=== PATIENT | male | born 1990 | race Caucasian/White ===

== ENCOUNTER 2022-06-01 20:01 | Emergency (ER) | payer MEDICARE, SELFPAY ==
[2022-06-01] VITALS (12 sets, daily range): BP systolic 110–125; BP diastolic 72–83; PULSE 45–80; RESP 16–20; TEMP 36.4–37.5; O2SAT 97–99
--- NOTE | 2022-06-01 20:26 | CRLHL7_ITS ---
For Patients: As a result of the Century Cures Act, medical imaging exams and procedure reports are released immediately into your electronic medical record. You may view this report before your referring provider. If you have questions, please contact your health care provider. INDICATION: Left inguinal hernia. COMPARISON: None. TECHNIQUE: CT abdomen pelvis with Isovue-370, 81 cc IV. FINDINGS: Lung bases are clear. Normal heart size. No pericardial effusion. Normal liver size and contour. No definite suspicious hepatic lesions. The hepatic veins are under opacified. Portal veins appear patent. The gallbladder is unremarkable. No biliary dilatation. No significant abnormality of the adrenal glands, kidneys, spleen, pancreas, stomach or duodenum. Normal course and caliber of the abdominal aorta and the IVC. The aortic side branches and the renal veins appear patent. There is no lymphadenopathy. The bladder and prostate are unremarkable. The large bowel is favored decompressed rather than thickened. The appendix appears normal. No significant free fluid. No significant ventral abdominal wall hernia. Small fat containing left inguinal hernia (series 2, image 131). No acute osseous abnormality. IMPRESSION: Small fat containing left inguinal hernia. Please note that all CT scans at this facility use dose modulation, iterative reconstruction, and/or weight-based dosing when appropriate to reduce radiation dose to as low as reasonably achievable. Dictated by David Casiano MD @ 06/01/2022 9:40:33 PM (Electronically Signed)
--- NOTE | 2022-06-01 20:28 | ED_ITS ---
HPI - General Adult General Chief complaint: Groin Pain Stated complaint: Hernia Time Seen by Provider: 06/01/22 20:23 History of Present Illness HPI narrative: This 32-year-old male comes in with severe pain in his left inguinal region. He states that he has a hernia there and did have a CT scan about a year ago. Recently he was lifting some heavy objects at work and now has severe pain in the left inguinal region radiating down into his left testicle he states that the pain is worse when attempting to pass urine or bowel movement. He does not report any fevers. He ranks the pain at 9 or 10 out of a scale of 10. Related Data Allergies Allergy/AdvReac Type Severity Reaction Status Date / Time No Known Drug Allergies Allergy Verified 06/01/22 20:19 PFSH PFS Social History Smoking Status: Current every day smoker How often do you have a drink containing alcohol: 2-4 times a month How often do you have six or more drinks on one occasion: Less than monthly AUDIT-C Alcohol total score: 3 Non-prescribed substance use: denies use service: No Exam Narrative: Exam Narrative: Constitutional: Well-developed, well-nourished, no acute distress. HEENT: Normocephalic, atraumatic. Neck: Normal range of motion. Nontender. Supple. Heart: Regular. No murmurs. Normal rate. Intact distal pulses. Lungs: Clear to auscultation. No chest discomfort. No wheezes, rhonchi, or rales. Abdomen: Normal bowel sounds. Tenderness in the left lower quadrant in the inguinal region. No significant palpable mass in this area. Genitalia: Deferred. Back: No midline tenderness. Normal range of motion. Extremities: Normal range of motion. No injury. Skin: Intact. No rash. Warm. No erythema or pallor. Neurologic: No altered sensation. No weakness. Alert and oriented. Psychiatric: No suicidality. No anxiety or depression. No insomnia. Nursing notes and vitals signs are reviewed. Const: Vital Signs, click to edit/add: Vital Signs - 24 hr 06/01/22 20:12 06/01/22 20:56 06/01/22 21:07 Temperature 99.5 F Pulse Rate [Left P ulse Oximeter] 65 55 L Respiratory Rate 16 18 Blood Pressure [Ri ght Upper Arm] 120/77 120/78 Pulse Oximetry 99 98 98 Oxygen Delivery Me thod Room Air Room Air Course Vital Signs Vital signs: Initial Vital Signs Temperature 99.5 F 06/01/22 20:12 Temperature Source Temporal Artery Scan 06/01/22 20:12 Pulse Rate 65 06/01/22 20:12 Pulse Rhythm 06/01/22 20:12 Pulse Strength 0+ Absent 06/01/22 20:12 Respiratory Rate 16 06/01/22 20:12 Blood Pressure 120/77 06/01/22 20:12 Blood Pressure Mean 91 06/01/22 20:12 Blood Pressure Position Sitting 06/01/22 20:12 Pulse Oximetry 99 06/01/22 20:12 Oxygen Delivery Method 06/01/22 20:12 Vital Signs Temperature 99.5 F 06/01/22 20:12 Pulse Rate 65 06/01/22 20:12 Respiratory Rate 16 06/01/22 20:12 Blood Pressure 120/77 06/01/22 20:12 Pulse Oximetry 99 06/01/22 20:12 Oxygen Delivery Method 06/01/22 20:12 Temperature 99.5 F 06/01/22 20:12 Pulse Rate 55 L 06/01/22 20:56 Respiratory Rate 18 06/01/22 20:56 Blood Pressure 120/78 06/01/22 20:56 Pulse Oximetry 98 06/01/22 21:07 Oxygen Delivery Method 06/01/22 20:56 Medical Decision Making MDM Narrative Medical decision making narrative: This patient has a known left inguinal hernia which is causing much more pain now after lifting some heavy objects at work. An IV was established where he received Dilaudid 0.5 mg and Zofran [address] scan of the abdomen and pelvis and labs are ordered with results pending at the end of my shift. Care for this patient is transferred to Dr. Wang for review of results and disposition. Lab Data Labs: Lab Results 06/01/22 06/01/22 Range/Units 20:40 20:40 WBC 5.70 (4.50-11.00) K/uL RBC 4.68 (4.30-5.90) m/uL Hgb 14.6 (13.5-17.5) gm/dL Hct 42.4 (37.0-53.0) % MCV 91 (80-100) fL MCH 31 (26-34) pg MCHC 34 (32-36) gm/dL RDW Coeff of Miry[place] 11.5 (11.5-15.5) % Plt Count 256 (140-440) K/uL Neut % (Auto) 67.9 (42.0-72.0) % Lymph % (Auto) 19.8 L (20-44) % [place] % (Auto) 10.0 (0.0-11.0) % Eos % (Auto) 1.8 (0.0-7.0) % Baso % (Auto) 0.5 (0.0-3.0) % Neut # (Auto) 3.87 (1.7-7.0) K/uL Lymph # (Auto) 1.10 (0.90-2.90) K/uL [place] # (Auto) 0.60 (0.00-0.90) K/UL Eos # (Auto) 0.10 (0.00-0.50) K/uL Baso # (Auto) 0.03 (0.00-0.30) K/uL Sodium 141 (135-149) mmol/L Potassium 4.0 (3.6-5.1) mmol/L Chloride 106 (96-114) mmol/L Carbon Dioxide 29 (20-32) mmol/L BUN 11 (5-24) mg/dL Creatinine 0.7 (0.5-1.5) mg/dL Estimated GFR 127 ml/min Glucose 76 (60-115) mg/dL Calcium 9.3 (8.4-10.6) mg/dL Discharge Plan Discharge Clinical Impression: Inguinal hernia Follow Up/Referrals: Generic,Amb Provider [Primary Care Provider] -
[2022-06-01 20:47] LABS: Basophils Absolute Auto 0.03 K/uL (0.00-0.30); Basophils Percent Auto 0.5 % (0.0-3.0); Eosinophils Percent Auto 1.8 % (0.0-7.0); Hematocrit 42.4 % (37.0-53.0); Hemoglobin* 14.6 gm/dL (13.5-17.5); Lymphocytes Percent Auto 19.8 % (20-44); Mean Corpuscular HGB Conc 34 gm/dL (32-36); Mean Corpuscular Hemoglobin 31 pg (26-34); Mean Corpuscular Volume 91 fL (80-100); Neutrophils Absolute Auto 3.87 K/uL (1.7-7.0); Neutrophils Percent Auto 67.9 % (42.0-72.0); Platelet Count* 256 K/uL (140-440); RDW Coefficient of Variation % 11.5 % (11.5-15.5); Red Blood Count 4.68 m/uL (4.30-5.90)
[2022-06-01] MEDS: ONDANSETRON 2 MG/ML inj 4 MG IVP (20:47)
[2022-06-01] MEDS: HYDROmorphone 0.5 mg/0.5 ml inj IVP (20:47)
[2022-06-01 20:49] LABS: Slide Review Reflex No
[2022-06-01 20:58] LABS: Chloride* 106 mmol/L (96-114)
[2022-06-01 20:59] LABS: Sodium* 141 mmol/L (135-149)
[2022-06-01 21:01] LABS: Creatinine* 0.7 mg/dL (0.5-1.5); Estimated Glomerular Filt Rate 127 ml/min
[2022-06-01 21:02] LABS: Blood Urea Nitrogen* 11 mg/dL (5-24); Calcium* 9.3 mg/dL (8.4-10.6); Carbon Dioxide* 29 mmol/L (20-32); Glucose* 76 mg/dL (60-115)
[2022-06-01 21:51] LABS: Appearance Urine Clear (Clear); Bilirubin Urine Negative (Negative); Blood Urine Negative (Negative); Color Urine Yellow (Yellow); Glucose Urine Negative (Negative); Ketones Urine Negative (Negative); Leukocyte Esterase Urine Negative (Negative); Nitrite Urine Negative (Negative); Protein Urine Negative (Negative); Specific Gravity Urine <= 1.005 (1.000-1.030); Urobilinogen Urine 0.2 (0.2-1.0); pH Urine 6.5 (5.0-8.5)
[2022-06-01 21:57] LABS: RBC Urine 0-2 (0-2); Squamous Epithelial Cell Urine Few (None-Few); WBC Urine 0-2 (0-5)
== END 2022-06-01 22:33 | disposition home or self-care (01) ==
LOC: ED 22:28
PROVIDERS: Emergency Provider Emergency Medicine Emergency Medical Services
DX: K40.90 Unilateral inguinal hernia, without obstruction or gangrene, not specified as recurrent (principal)
CPT/HCPCS: 36415; 74177; 80048; 81001; 85025; 94761; 96374; 96375; 99284; J1170; J2405; Q9967

== ENCOUNTER 2022-06-16 10:10 | Day surgery (SDC) | payer MEDICARE, SELFPAY ==
[2022-06-16] VITALS (11 sets, daily range): BP systolic 114–135; BP diastolic 73–89; PULSE 50–89; RESP 16–20; TEMP 36.3–36.7; O2SAT 95–100; BMI 21.5
[2022-06-16] MEDS: SODIUM CHLORIDE 0.9 % (FLUSH) 10 ML SYRINGE IVF (10:40)
[2022-06-16] MEDS: LACTATED RINGERS 1000 ML 1,000 ML 100 ML IV ×2 (10:40→12:20)
--- NOTE | 2022-06-16 10:49 | SUR.PREOP ---
Patient provided home covid negative results to RN.
--- NOTE | 2022-06-16 11:03 | W.ANESCHARGE ---
Anesthesia Charges Start Date/Time Anesthesia Start Date: 06/16/22 Anesthesia Start Time: 11:14 Stop Date/Time Anesthesia Stop Date: 06/16/22 Anesthesia Stop Time: 12:50
[2022-06-16] MEDS: CEFAZOLIN 1 GM inj IVP (11:24)
[2022-06-16] MEDS: BUPIVACAINE 0.25% 30 ML INJECTION (12:29)
--- NOTE | 2022-06-16 12:41 | P.GSOP_ITS ---
Operative Note Date of procedure: 06/16/22 Pre-op diagnosis: Left inguinal hernia Post-op diagnosis: Left inguinal hernia, direct and indirect Type of Procedure: Laparoscopic left inguinal hernia repair Indications: Patient is a 32-year-old male who presented to clinic with a symptomatic left inguinal hernia. Different treatment options were reviewed including obs ervation versus operative intervention. After a full discussion, please see consultation note, the patient decided to proceed with surgical intervention. Risks and benefits of operative intervention were discussed at length with the patient. Risks included but was not limited to: Bleeding, infection, risk of damage to surrounding structures, possible need for additional procedures, possible need to convert to an open operation and postoperative complications such as pneumonia, pulmonary emboli or ID. All questions and concerns were addressed with the patient agreeing to proceed. Procedure Description: After discussing the risks and benefits of the procedure, the patient signed informed consent.? The operative site was marked and the patient was brought to the operating room and placed on the operating table in supine position.? Care was taken to pad the patient's pressure points.?? The patient was then intubated by anesthesia.?? The operative site was then prepped and draped in the usual sterile fashion.? A time-out was then performed. A curvilinear incision was made below the umbilicus. Dissection was carried down to subcutaneous tissue until the anterior rectus fascia was encountered. This was incised off the midline. The rectus muscles were then retracted exposing the posterior fascia. A space maker port with a dissecting balloon was then introduced. The preperitoneal space was inflated under direct vision. The balloon was then removed and the preperitoneal space insufflated. A 10 mm 0 degree scope was then advanced and the area was surveyed for bleeding. Dissection began on the left side. Humberto's ligament and the pubic bone was exposed medially. Following this dissection was carried out laterally. A small indirect and direct defect was noted. The sac was dissected free from the cord structures and the anterior abdominal wall using a combination of sharp and blunt dissection. During this dissection there was a small amount of bleeding from a testicular vein. This was controlled with a 5 mm clip placed distal and proximal. Once hemostasis was assured and the sac was completely reduced, the cord structures were dissected circumfrentially and a piece of Parietex mesh for the appropriate side was placed into the abdomen. This was positioned around the cord structures. A Tacker was used to attach the mesh medially at Humberto's ligament. Once this was completed the sac was placed on top of the mesh and the preperitoneal space desufflated under direct vision. The ports were removed. The fascia from the infraumbilical port was closed with 0 Vicryl. The skin incisions were closed with absorbable subcuticular suture. Sterile dressings were then applied. The scrotum was examined to ensure that annie th testicles were down. Instrument sponge and needle counts were correct at the end of the case. The patient was then woken and transported to the recovery area in stable condition. ? The patient tolerated the procedure well. Findings: Small left indirect and direct hernia Anesthesia: GETA Surgeon: Veronika Garcia MD Estimated blood loss (mL): 5 Condition: stable Disposition: same day
--- NOTE | 2022-06-16 12:53 | W.ANESCHARGE ---
Anesthesia Charges Start Date/Time Anesthesia Start Date: 06/16/22 Anesthesia Start Time: 11:14 Stop Date/Time Anesthesia Stop Date: 06/16/22 Anesthesia Stop Time: 12:50
[2022-06-16] MEDS: fentaNYL 100 MCG/2 ML inj 50 MCG IVP (13:01)
--- NOTE | 2022-06-16 13:23 | SUR.PHASEI ---
Cooler Man was present in PACU 1 from entrance into PACU1. Patient met discharge criteria per Anesthesia.
== END 2022-06-16 14:24 | disposition home or self-care (01) ==
PROVIDERS: Visit Provider Surgery
PROC: (CPT 49650; principal; 2022-06-16 10:30)
DX: K40.90 Unilateral inguinal hernia, without obstruction or gangrene, not specified as recurrent (principal)
CPT/HCPCS: 49650; 00830; 00860; C1781; J0330; J0690; J1100; J1885; J2250; J2405; J2704; J3010; J3490; J7120